=== PATIENT | female | born 1970 | race Caucasian/White ===

== ENCOUNTER → 2021-01-15 | Outpatient (CLI) | payer OTHER ==
--- NOTE | 2021-01-15 11:45 | RAD ---
XR FOOT_LEFT 3 VIEWS History: Reason: FOOT INJURY, PAIN IN METATARSEL REGION OF 2ND AND 3RD DIGIT / Spl. Instructions: / History: Technique: 3 views left foot. Comparison: None. Findings: Subtle linear lucency overlying the fourth proximal phalanx shaft. No dislocation. Impression: 1. Subtle linear lucency overlying the fourth proximal phalanx, may represent summation artifact or nondisplaced fracture. Recommend correlation with point tenderness. Electronically signed by: Cresencio Lerma DO (01/15/2021 11:43 AM) [id number]
== END ==
LOC: PMG 09:57
PROVIDERS: ATTEND Nurse Practitioner Family
DX: M79.672 Pain in left foot (principal); Z87.828 Personal history of other (healed) physical injury and trauma
CPT/HCPCS: 73630